=== PATIENT | female | born 1995 | race African-American/Black ===

== ENCOUNTER 2025-05-12 17:32 | Emergency (ER) | payer MEDICAID, OTHER ==
[~2025-05-12] VITALS: Ht 162.6 cm; Wt 81.8 kg
[~2025-05-12 17:32] MED LIST: SERT-158 PO
[2025-05-12 17:42] VITALS: BP 126/78; PULSE 68; RESP 18; TEMP 98.6; O2SAT 99
[2025-05-12] MEDS ORDERED: HYDR-4062 PO (23:05)
[2025-05-12] MEDS ORDERED: IBUP-1492 PO (23:05)
[2025-05-12] MEDS: IBUPROFEN 600 MG TABLET PO ONE (23:14)
[2025-05-12] MEDS: HYDROCODONE/ACETAMINOPHEN 5-325 MG TABLET PO ONE (23:14)
== END 2025-05-12 23:38 | disposition home or self-care (01) ==
LOC: EMS 17:33
DX: S92.201A Fracture of unspecified tarsal bone(s) of right foot, initial encounter for closed fracture (principal); F32.A Depression, unspecified; F12.90 Cannabis use, unspecified, uncomplicated; F17.210 Nicotine dependence, cigarettes, uncomplicated; Z79.899 Other long term (current) drug therapy; W01.0XXA Fall on same level from slipping, tripping and stumbling without subsequent striking against object, initial encounter; Y93.01 Activity, walking, marching and hiking; Y92.89 Other specified places as the place of occurrence of the external cause; Y99.8 Other external cause status
CPT/HCPCS: 99283